=== PATIENT | male | born 1950 | race Caucasian/White ===

== ENCOUNTER → 2023-04-06 | Outpatient (CLI) | payer MEDICARE, OTHER, SELFPAY ==
--- NOTE | 2023-04-06 11:11 | MRI_ITS ---
EXAMINATION: MR Prostate WO/W Contrast COMPARISON: None CLINICAL HISTORY: 72 yo man w/ elevated PSA Most recent PSA = 13.5 ng/ml TECHNIQUE: Standard prostate MR protocol was used before and after administration of 16 cc of IV Clariscan. FINDINGS: Prostate volume: 59 cc PSA density: 0.23 ng/ml2 Length of membranous urethra: 17 mm Post-biopsy hemorrhage: None Multiparametric MR evaluation: Heterogeneous appearance of the central gland is consistent with benign prostatic hyperplasia. No suspicious T2 hypointense or diffusion restricting lesion. Capsular margin and neurovascular bundle: Not involved Seminal vesicles: Not involved. Lymph nodes: No lymphadenopathy in the field of view. Bones: No suspicious lesions in the field of view. MRI/Pelvis W/WO Contrast IMPRESSION: PI-RADS 2 Benign prostatic hyperplasia. No suspicious T2 hypointense or diffusion restricting lesion. No lymphadenopathy. No suspicious bone lesions. Electronically Signed: Riccardo Sosa MD at 23:35 EST ,
[2023-04-06 11:44] LABS: CREATININE FINGERSTICK < 0.9 mg/dL (0.70-1.30); EGFR FINGERSTICK > 60.0000 mL/min (>60)
== END | disposition home or self-care (01) ==
LOC: MRI 11:08
PROVIDERS: PCP Family Medicine; Referring Provider Urology; Visit Provider Urology
DX: R97.20 Elevated prostate specific antigen [PSA] (principal)
CPT/HCPCS: 72197; A9575

== ENCOUNTER → 2023-10-19 | Outpatient (CLI) | payer MEDICARE, OTHER, SELFPAY ==
[2023-10-21 15:08] LABS: PSA, Free 1.31 ng/mL; PSA, Free % 11.7 % (.)
== END | disposition home or self-care (01) ==
PROVIDERS: PCP Family Medicine; Referring Provider Nurse Practitioner; Visit Provider Nurse Practitioner
DX: R97.20 Elevated prostate specific antigen [PSA] (principal)
CPT/HCPCS: 36415; 84153; 84154

== ENCOUNTER → 2023-11-15 | Outpatient (CLI) | payer MEDICARE, OTHER, SELFPAY ==
--- NOTE | 2023-11-15 | PROSBIL_PTH ---
PATIENT: JARRET BOWERS LOC: [facility] U#:[id number] AGE/SX: 73/M ROOM: RE11/15/[address]: Dr. Blanco Archibald MD : 1950 BED: DIS: 11/15/2023 SPEC #: [id number] RECD: 11/16/23 10:18 STATUS: KHANG REFermín #: [id number] [place]: 11/15/23 00:[address]: Blanco Archibald DEPT: SURGICAL PATHOLOGY RECD BY: Graciela Restrepo ENTERED: 11/16/23 10:19 SP TYPE: PROST BX MELISSA DR: Dr. Jorge Cervantes MD Tissues: A - PROSTATE RIGHT B - PROSTATE RIGHT C - PROSTATE RIGHT D - PROSTATE LEFT E - PROSTATE LEFT F - PROSTATE LEFT Procedures: PROSTATE BX HEADER OPERATION: Prostate biopsy PRE-OP DIAGNOSIS: Elevated PSA TISSUE SUBMITTED: A - Right apex, B - Right mid, C - Right base, D - Left apex, E - Left mid, F - Left base MICROSCOPIC DIAGNOSIS A. Right prostate, apex, core biopsy: Prostatic tissue, negative for malignancy. B. Right prostate, mid, core biopsy: Prostatic tissue, negative for malignancy. Focal atrophy and mild chronic inflammation. C. Right prostate, base, core biopsy: Prostatic adenocarcinoma. Berta grade: 3+3=6 Number of cores involved: 2/2 Proportion of tissue involved: ~10%% Perineural invasion: Not identified. Greatest tumor length: 0.2 cm See comment. D. Left prostate, apex, core biopsy: A minute focus of prostatic adenocarcinoma. Berta grade: 3+4=7 Number of cores involved: 1/1 Proportion of tissue involved: <5 % Perineural invasion: Not identified. Greatest tumor length: <0.1cm See comment. E. Left prostate, mid, core biopsy: Prostatic adenocarcinoma. Berta grade: 3+3=6 Number of cores involved: 2/2. Proportion of tissue involved: ~80% Perineural invasion: Present, focal Greatest tumor length: 1.0 cm Focal high-grade prostatic intraepithelial neoplasia (HGPIN). F. Left prostate, base, core biopsy: Prostatic adenocarcinoma. [place] grade: 3+4=7 Number of cores involved: 1/2 Proportion of tissue involved: <5% Perineural invasion: Not identified. Greatest tumor length: 0.1cm Focal atypical small acinar proliferation (OLIVER). See comment. MIKE/ 11/17/2023 COMMENT C, D, F. Immunohistochemistry ([id number]) supports the above diagnosis. MICROSCOPIC DESCRIPTION Slides are reviewed. GROSS DESCRIPTION A - Received is one container designated prostate, right apex. The specimen consists of one elongated fragments of light logan-white soft tissue measuring 1.2 cm in length and 0.1 cm in diameter. The specimen is totally submitted in one cassette. B - Received is one container designated prostate, right mid. The specimen consists of two elongated fragments of light logan-white soft tissue each measuring 0.5 cm in length and 0.1 cm in diameter. The specimen is totally submitted in one cassette. C - Received is one container designated prostate, right base. The specimen consists of two elongated fragments of light logan-white soft tissue each measuring 0.9 cm in length and 0.1 cm in diameter. The specimen is totally submitted in one cassette. D - Received is one container designated prostate, left apex. The specimen consists of one elongated fragments of light logan-white soft tissue measuring 1.5 cm in length and 0.1 cm in diameter. The specimen is totally submitted in one cassette. E - Received is one container designated prostate, left mid. The specimen consists of two elongated fragments of light logan-white soft tissue each measuring 1.0 cm in length and 0.1 cm in diameter. The specimen is totally submitted in one cassette. F - Received is one container designated prostate, left base. The specimen consists of two elongated fragments of light logan-white soft tissue each measuring 1.3 cm in length and 0.1 cm in diameter. The specimen is totally submitted in one cassette. MIKE/ 11/16/2023 TC:0 CPT: G0146
--- NOTE | 2023-11-16 | IMM_PTH ---
PATIENT: JARRET BOWERS LOC: [facility] U#:[id number] AGE/SX: 73/M ROOM: RE11/15/[address]: Dr. Blanco Archibald MD : 1950 BED: DIS: 11/15/2023 SPEC #: [id number] RECD: 11/17/23 11:07 STATUS: KHANG REQ #: [id number] [place]: 11/16/23 00:[address]: Blanco Archibald DEPT: IMMUNOHISTOCHEMISTRY RECD BY: Cordell Biggs ENTERED: 11/17/23 11:08 SP TYPE: IMMUNO OTHR DR: Dr. Jorge Cervantes MD Tissues: C - PROSTATE RIGHT D - PROSTATE LEFT F - PROSTATE LEFT Procedures: 34BE12 (add) P40 (add) P40 (initial) PHYSICIAN & INSTITUTION [place] [address] SPECIMEN INFORMATION: Tissue Source: C- Prostate right base, D- Prostate left apex, F- Prostate left base Clinical Info: Elevated PSA Specimen Number: [id number] CPT code: 57115,64155u6 METHODOLOGY: Deparaffinized sections of prefer/formalin-fixed tissue or PAP/DQ stained slides are incubated with monoclonal/polyclonal antibodies/oligonucleotide probes. Localization is made via biotin free immunoperoxidase method. Appropriate controls are performed and reacted as expected. Results on target cell population are indicated in the following table: RESULTS: ANTIBODY / CLONE RESULT Block C P40 (BC28) negative 34BE12 (34BE12) negative Block D P40 (BC28) negative 34BE12 (34BE12) negative Block F P40 (BC28) negative 34BE12 (34BE12) negative These tests were developed and their performance characteristics determined by [facility]. They may not have been cleared or approved by the U.S. Food and Drug Administration. The FDA has determined that such clearance or approval is not necessary. The above immunohistochemical/dualISH markers are ordered and reviewed by the Pathologist. INTERPRETATION: C. Prostate, right base, core biopsy: Adenocarcinoma. D. Prostate, left apex, core biopsy: A minute focus of adenocarcinoma. F. Prostate, left base, core biopsy: Adenocarcinoma. Focal atypical small acinar proliferation (OLIVER). MIKE/ 11/18/2023
== END | disposition home or self-care (01) ==
LOC: LABSPEC 15:49
PROVIDERS: PCP Family Medicine; Visit Provider Urology
DX: R97.20 Elevated prostate specific antigen [PSA] (principal)
CPT/HCPCS: 88305; 88341; 88342; G0416

== ENCOUNTER → 2023-12-02 | Outpatient (CLI) | payer MEDICARE, OTHER, SELFPAY ==
--- NOTE | 2023-12-02 09:43 | NM_ITS ---
CLINICAL: 73-year-old male with history of primary prostate carcinoma. WHOLE BODY 99m Tc MDP RADIONUCLIDE BONE SCINTIGRAPHY COMPARISON: None available FINDINGS: Following the intravenous administration of 27.0 mCi of 99m Tc MDP, whole body bone images reveal: 1. Enhanced radiotracer concentration is defined in the acromioclavicular compartment of the right shoulder, glenohumeral and sternoclavicular compartments of both shoulders, mid cervical spine posteriorly on the right, lower cervical spine posteriorly on the left, the fifth lumbar vertebra, the eighth and 12th thoracic vertebra posteriorly on the right, the bilateral posterior sacrum, the patellofemoral compartments of both knees, the visualized right hand. 2. The remaining skeletal structures are scintigraphically unremarkable with normal-appearing renal images and urinary bladder activity identified. NM/Bone Scan Whole Body IMPRESSION: 1. The increase in tracer concentration identified in the cervical, thoracic and lumbar spine, sacrum, bilateral shoulders and knees, the right hand is commensurate with degenerative arthritis. 2. There is no definitive typical scintigraphic evidence of diffuse axial skeletal metastatic disease. Electronically Signed: Napoleon Qiu DO at 10:01 EDT ,
== END | disposition home or self-care (01) ==
LOC: NM 09:41
PROVIDERS: PCP Family Medicine; Referring Provider Urology; Visit Provider Urology
DX: C61 Malignant neoplasm of prostate (principal)
CPT/HCPCS: 78306; A9503

== ENCOUNTER 2024-04-11 16:00 | Emergency (ER) | payer MEDICARE, OTHER, SELFPAY ==
[2024-04-11] VITALS (8 sets, daily range): BP systolic 139–179; BP diastolic 85–98; PULSE 72–79; RESP 15–18; TEMP 36.2–37.1; O2SAT 92–98; BMI 26.5
--- NOTE | 2024-04-11 16:12 | EKG12_ITS ---
Test Reason : Blood Pressure : */* mmHG Vent. Rate : 72 BPM Atrial Rate : 72 BPM P-R Int : 162 ms QRS Dur : 84 ms QT Int : 376 ms P-R-T Axes : 43 -25 49 degrees QTcB Int : 411 ms Normal sinus rhythm Normal ECG Confirmed by KARISSA JOE, ADELA ([id number]), dictionary editor MIAN EARL ([id number]) on 04/12/2024 8:19:35 AM Referred By: Confirmed By: ADELA HANCOCK MD
--- NOTE | 2024-04-11 16:27 | CT_ITS ---
STUDY: CT BRAIN WITHOUT CONTRAST REASON FOR EXAM: Male, 73 years old. headache RADIATION DOSAGE (If Supplied By Facility): CTDIvol = ( 44.99 ) mGy, DLP = ( 846.73 ) mGycm TECHNIQUE: Transaxial CT imaging of the brain was performed without administration of intravenous contrast material. Individualized dose optimization techniques were used for this CT. COMPARISON: No relevant priors. FINDINGS: Normal soft tissue structures. Normal calvarium. Normal size ventricles and extra-axial spaces for the patient''s age. Normal white matter tracts of the cerebral hemispheres. Normal basal ganglia and thalami. Normal brainstem. Normal cerebellum. There is no intracranial hemorrhage. There are no findings of an acute ischemic infarction. Normal visualized paranasal sinuses. CT/Brain/Head without Contrast IMPRESSION: Normal unenhanced CT scan of the brain. Electronically Signed: Vikas Heart DO at 17:31 EST ,
--- NOTE | 2024-04-11 16:28 | EDS_ITS ---
HPI History of Present Illness Chief Complaint: Chest Pain Narrative Narrative: Patient is a 73-year-old male who presented to the emergency department with a chief complaint of high blood pressure. He states that today when he woke up he had brain fog. He states that he had a appointment today with his urologist and noted that he did not feel that he should drive to the appointment secondary to some blurry vision associated with this he had his drive him. He states that they checked his blood pressure in the office was elevated and ultimately prompted him here for further evaluation management. Patient states that he also has had some left-sided chest pain with this he states that this morning he felt like somebody was stabbing him in the left side of the chest. He states that nothing makes this better or worse he states that this waxes and wanes. He states that the pain did radiate to his left side of his jaw as well. Patient states that currently here in the emergency department he has no pain. PFSH PFSH Allergy/AdvReac Type Severity Reaction Status Date / Time milk (dairy) Allergy Mild Abd Verified 04/11/24 16:55 cramps/diarrhea soy Allergy Mild Abd Verified 04/11/24 16:55 cramps/diarrhea tamsulosin (From Flomax) Allergy Mild Other Verified 04/11/24 16:55 wheat Allergy Mild Abd Verified 04/11/24 16:55 cramps/diarrhea cat dander (cats) Allergy Rash Verified 04/11/24 16:55 chicken derived Allergy Abd Verified 04/11/24 16:55 cramps/diarrhea corn Allergy Rash Verified 04/11/24 16:55 dog dander Allergy Rash Verified 04/11/24 16:55 epoxy resin Allergy Rash Verified 04/11/24 16:55 grass pollen Allergy Rash Verified 04/11/24 16:55 nickel (dani) Allergy Rash Verified 04/11/24 16:55 PPD black rubber mix Allergy Rash Verified 04/11/24 16:55 turkey Allergy Abd Verified 04/11/24 16:55 cramps/diarrhea Social History Smoking Status: Former smoker ROS ROS ED ROS Narrative Constitutional: Complains of headache denies any lightness, dizziness, fevers, chills Eyes: Complains of some blurry vision denies double vision Cardiovascular: Complains of left-sided chest pain as noted above Respiratory: Denies any coughing wheezing shortness of breath Abdomen: Denies abdominal pain nausea vomit diarrhea : Denies urinary symptoms Neurological: Denies numbness, weakness, tingling Musculoskeletal: Denies back pain Skin: Denies rashes or lesions EXAM Physical Exam Narrative Exam Narrative: General: Patient lying in bed rest comfortably did not appear to be acute distress Head: Atraumatic, normocephalic Eyes: PERRL bilaterally, EOMI bilaterally, no conjunctival injection noted Neck: Soft, supple, trachea midline Cardiovascular: Regular rate and rhythm no murmurs gallops rubs noted Respiratory: Clear to auscultation bilaterally no rales rhonchi wheeze noted Abdomen: Soft, nondistended, nontender to palpation, bowel sounds present x 4 Extremities: +5/5 strength noted in the bilateral upper and lower extremities, radial pulses +2/4 in the bilateral upper extremities, no pedal edema noted on exam Neurological: Patient following commands knew that he was at [facility] there is 2023. NIH of 0 GCS 15 Skin: Warm, dry, intact Const Vital Signs: 04/11/24 16:02 04/11/24 16:09 04/11/24 16:12 Temperature 97.2 F L Temperature Source Temporal Pulse Rate 79 Respiratory Rate 15 Respiratory Effort Normal Blood Pressure 179/93 H Blood Pressure Mean 121 Pulse Ox 92 96 Oxygen Delivery Method Room Air Room Air 04/11/24 17:01 04/11/24 18:00 04/11/24 19:00 Temperature Temperature Source Pulse Rate 78 75 78 Respiratory Rate 17 16 18 Respiratory Effort Blood Pressure 152/93 H 163/98 H 147/87 H Blood Pressure Mean 112 119 107 Pulse Ox 96 97 97 Oxygen Delivery Method Room Air Room Air Room Air 04/11/24 19:25 Temperature Temperature Source Pulse Rate 72 Respiratory Rate 18 Respiratory Effort Blood Pressure 139/85 H Blood Pressure Mean 103 Pulse Ox 98 Oxygen Delivery Method Room Air MDM MDM MDM Narrative Medical decision making narrative: Patient is a 73-year-old male who presented to the emergency department with a chief complaint of chest pain and brain fog who will have a workup performed here on the differential diagnose includes not limited to intracranial hemorrhage, ACS, stable angina, hypertensive emergency, central hypertension. Once workup is obtained reviewed he will be reevaluated. Patient CBC reviewed and showed a white blood cell count 11,000, hemoglobin is 15.6, platelet count normal at 239. Patient sodium normal at 140, potassium normal at 3.8, creatinine normal at 0.80. Patient's troponin was noted to be normal at 4 with a delta troponin obtained normal at 5. Patient EKG reviewed and independently interpreted by myself which showed sinus rhythm with a rate of 72 bpm. Patient's chest x-ray reviewed by myself and by radiology showed no acute cardiopulmonary processes. Patient CT head and brain without contrast showed no acute findings. I did discuss results with the patient he would like to go home at this point time. Once again nothing makes his pain better or worse at this point in time I have low suspicion of a cardiac etiology. He was advised to keep his blood pressure log over the next several days by taking his blood pressure randomly 3 times a day and writing this down. He was encouraged to return with worsening symptoms and concerns. He is agreeable with this plan as well as significant other at bedside all question concerns answered he was discharged home in stable condition. Lab Data Labs: Laboratory Results - last 24 hr 04/11/24 04/11/24 16:16 18:21 WBC 11.1 H RBC 5.05 Hgb 15.6 Hct 46.6 MCV 92.3 MCH 30.9 MCHC 33.5 RDW Std Deviation 46.0 H RDW Coeff of Deyvi 13.6 Plt Count 239 MPV 9.9 Immature Gran % (Auto) 1.100 H Neut % (Auto) 80.5 H Lymph % (Auto) 9.5 L Crenshaw % (Auto) 8.0 Eos % (Auto) 0.5 Baso % (Auto) 0.4 Absolute Neuts (auto) 8.9 H Absolute Lymphs (auto) 1.06 Nucleated RBC % 0 Sodium 140 Potassium 3.8 Chloride 108 H Carbon Dioxide 27.0 Anion Gap 5 BUN 12 Creatinine 0.80 Estim Creat Clear Calc 83.65 Est GFR (MDRD) Af Amer 120 Est GFR (MDRD) Non-Af 100 BUN/Creatinine Ratio 14.9 Glucose 123 H Calcium 9.1 Troponin I High Sens 4 5 Radiography Diagnostic Testing: Clinical Impression(s) from Imaging Studies Brain CT 04/11/24 16:27 IMPRESSION: Normal unenhanced CT scan of the brain. Electronically Signed: Vikas Heart DO at 17:31 EST , Chest X-Ray 04/11/24 16:29 IMPRESSION: No radiographic evidence of acute cardiopulmonary disease. Electronically Signed: Vikas DO Sly at 16:39 EST , Discharge Plan Triage Chief Complaint: Chest Pain ED Provider: Rangel Centeno Dx/Rx/DC Orders Clinical Impression: Chest pain Primary Care Provider: Jorge Cervantes Referrals: Jorge Cervantes MD [Primary Care Provider] - Activity Restrictions/Additional Instructions: Follow-up with your primary care physician in the outpatient setting. Keep a blood pressure log over the next several days to a week until you see your primary care physician by writing your blood pressure down randomly 3 times a day. Return with worsening symptoms or other concerns. Print Language: Lebanese Disposition Disposition: Home, Self Care
--- NOTE | 2024-04-11 16:29 | RAD_ITS ---
INDICATION: chest pain EXAMINATION/TECHNIQUE: X-RAY - XR Chest 2 Views COMPARISON: FINDINGS: LINES/DEVICES: None. LUNGS: No consolidation, edema or effusion. No pneumothorax. MEDIASTINUM AND CARDIOVASCULAR STRUCTURES: Cardiac silhouette not enlarged. Central airways and mediastinal contour are unremarkable. BONES AND SOFT TISSUES: Degenerative vertebral changes. RAD/Chest PA and Lateral IMPRESSION: No radiographic evidence of acute cardiopulmonary disease. Electronically Signed: Vikas Heart DO at 16:39 EST Reading Location ID and State: [facility] / [place] Tel [phone], Service support ,
[2024-04-11 16:36] LABS: Absolute Lymphocyte Count 1.06 X10^3/uL (0.83-4.51); Absolute Neutrophil Count 8.9 X10^3/uL (2.0-7.7); Basophil# 0.04 X10^3/uL; Basophil% 0.4 % (0-1); Eosinophil# 0.05 X10^3/uL; Eosinophils% 0.5 % (0-5); Hematocrit 46.6 % (40-54); Hemoglobin 15.6 g/dL (13.0-16.5); Lymphocyte # 1.06 X10^3/ul (0.83-4.51); Lymphocyte % 9.5 % (19-41); Mean Corp Hgb Conc 33.5 g/dL (32-36); Mean Corpuscular Hgb 30.9 pg (27.0-32.0); Mean Corpuscular Volume 92.3 fL (80-94); Mean Platelet Vol. 9.9 fl (6.2-12.0); Monocyte# 0.89 X10^3/uL; NRBC Flagged by Analyzer 0 % (0-5); Neutrophil # 8.94 X10^3/uL (2.7-7.7); Neutrophil % 80.5 % (47-70); Platelet Count 239 K/mm3 (150-450); RBC Distribution Width CV 13.6 % (11.6-14.6); Red Blood Count 5.05 M/mm3 (4.6-6.2); White Blood Count 11.1 K/mm3 (4.4-11.0)
[2024-04-11 17:10] LABS: Anion Gap 5 (5-15); BUN 12 mg/dL (7-18); BUN/Creat Ratio 14.9 RATIO (10-20); Calcium,Total 9.1 mg/dL (8.5-10.1); Chloride 108 mmol/L (98-107); EST Glomerular Filtration Rate 100 mL/min (>60); Est Glom Filt Rate - Afr Amer 120 mL/min (>60); Estimated Creatinine Clearance 83.65 ml/min; Glucose 123 mg/dL (74-106); Potassium 3.8 mmol/L (3.5-5.1); Sodium Level 140 mmol/L (136-145); Troponin-I HS (w/2H Reflex) 4 pg/mL (3.0-78.0)
[2024-04-11 18:33] LABS: Reflex Troponin-HS? (from REC) Y
[2024-04-11 19:21] LABS: Troponin-I HS 5 pg/mL (3.0-78.0)
--- NOTE | 2024-04-11 19:37 | ED.RN ---
The patient called this RN into the room after he had a moment where he could not find his words. The patient's spouse reported the patient not being able to speak the words that the patient knew he wanted to say. The patient and his spouse explained that this only lasted a brief moment but has been happening for approximately 6 months because the patient states, I have been struggling with brain fog. NIHSS 0, physician notified, no new orders at this time.
== END 2024-04-11 20:15 | disposition home or self-care (01) ==
PROVIDERS: Emergency Provider Emergency Medicine; PCP Family Medicine; Visit Provider Emergency Medicine
DX: R07.9 Chest pain, unspecified (principal); Z87.891 Personal history of nicotine dependence
CPT/HCPCS: 70450; 71046; 80048; 84484; 85025; 93005; 99284; A4216

== ENCOUNTER → 2024-04-11 | Outpatient (CLI) | payer MEDICARE, OTHER, SELFPAY ==
[2024-04-11 17:05] LABS: PSA,Total - Annual Screen 7.45 ng/mL (0.00-4.00)
== END | disposition home or self-care (01) ==
LOC: LAB 15:30
PROVIDERS: PCP Family Medicine; Referring Provider Urology; Visit Provider Urology
DX: Z12.5 Encounter for screening for malignant neoplasm of prostate (principal)
CPT/HCPCS: 84153; G0103

== ENCOUNTER → 2024-07-11 | Outpatient (CLI) | payer MEDICARE, OTHER, SELFPAY ==
[2024-07-11 15:14] LABS: PSA,Total- Diagnostic 2.91 ng/mL (0.0-4.0)
== END | disposition home or self-care (01) ==
LOC: LAB 14:13
PROVIDERS: PCP Family Medicine; Referring Provider Nurse Practitioner; Visit Provider Nurse Practitioner
DX: C61 Malignant neoplasm of prostate (principal)
CPT/HCPCS: 36415; 84153

== ENCOUNTER → 2024-11-09 | Outpatient (CLI) | payer MEDICARE, OTHER, SELFPAY ==
[2024-11-09 16:39] LABS: PSA,Total- Diagnostic 1.51 ng/mL (0.00-4.00)
== END | disposition home or self-care (01) ==
LOC: LAB 13:49
PROVIDERS: PCP Family Medicine; Referring Provider Urology; Visit Provider Urology
DX: R97.20 Elevated prostate specific antigen [PSA] (principal)
CPT/HCPCS: 36415; 84153

== ENCOUNTER → 2024-12-21 | Outpatient (CLI) | payer MEDICARE, OTHER, SELFPAY ==
--- NOTE | 2024-12-21 14:05 | MRI_ITS ---
PROCEDURE: MRA HEAD ONLY WITHOUT CONTRAST; MRA NECK WITH AND W/O CONTRAST 12/21/2024 REASON FOR EXAM: AMAUROSIS FUGAX COMPARISON: CT head 04/11/2024. TECHNIQUE: MRA HEAD ONLY WITHOUT CONTRAST; MRA NECK WITH AND W/O CONTRAST multiplanar multisequential MR angiographic imaging of the head and neck most performed without and with IV gadolinium based contrast. 3D and MIP multiplanar reconstructions were performed. FINDINGS: MRA HEAD: Major intracranial arterial vasculature is patent without evidence for large vessel occlusion or significant flow-limiting stenosis. Bilateral ophthalmic arteries appear patent. There is predominantly origin of bilateral posterior cerebral arteries, with diminutive/hypoplastic connection to the basilar artery. Relatively hypoplastic left HOLLIE A1 segment compared to the right, with patent anterior communicating artery; anatomic variants. No saccular aneurysm, or vascular malformation is identified. MRA NECK: Conventional aortic arch branching. Bilateral cervical carotid and codominant vertebral arteries are patent, without evidence for significant flow-limiting stenosis. No luminal irregularity to suspicious for aneurysm/pseudoaneurysm, or dissection. MRI/MRA Head ONLY without Contrast IMPRESSION: Patent intracranial and cervical arterial vasculature. No large vessel occlusio n, flow-limiting stenosis, aneurysm, or other significant abnormality. Reading Location: [id number]
--- NOTE | 2024-12-21 14:05 | MRI_ITS ---
PROCEDURE: MRA HEAD ONLY WITHOUT CONTRAST; MRA NECK WITH AND W/O CONTRAST 12/21/2024 REASON FOR EXAM: AMAUROSIS FUGAX COMPARISON: CT head 04/11/2024. TECHNIQUE: MRA HEAD ONLY WITHOUT CONTRAST; MRA NECK WITH AND W/O CONTRAST multiplanar multisequential MR angiographic imaging of the head and neck most performed without and with IV gadolinium based contrast. 3D and MIP multiplanar reconstructions were performed. FINDINGS: MRA HEAD: Major intracranial arterial vasculature is patent without evidence for large vessel occlusion or significant flow-limiting stenosis. Bilateral ophthalmic arteries appear patent. There is predominantly origin of bilateral posterior cerebral arteries, with diminutive/hypoplastic connection to the basilar artery. Relatively hypoplastic left HOLLIE A1 segment compared to the right, with patent anterior communicating artery; anatomic variants. No saccular aneurysm, or vascular malformation is identified. MRA NECK: Conventional aortic arch branching. Bilateral cervical carotid and codominant vertebral arteries are patent, without evidence for significant flow-limiting stenosis. No luminal irregularity to suspicious for aneurysm/pseudoaneurysm, or dissection. MRI/MRA Neck WITH and W/O Contrast IMPRESSION: Patent intracranial and cervical arterial vasculature. No large vessel occlusio n, flow-limiting stenosis, aneurysm, or other significant abnormality. Reading Location: [id number]
== END | disposition home or self-care (01) ==
LOC: MRI 14:00
PROVIDERS: PCP Family Medicine
DX: G45.3 Amaurosis fugax (principal)
CPT/HCPCS: 70544; 70549; A9575